=== PATIENT | female | born 1990 | race Hispanic/Latino ===

== ENCOUNTER 2016-11-11 07:08 | Inpatient (IN) | payer MEDICAID ==
[~2016-11-11] VITALS: Ht 162.8 cm; Wt 71.4 kg
[~2016-11-11 07:08] MED LIST: Morphine PF 1 mg/mL 10 mL Inj ONE; Oxytocin 10 Unit/mL Inj ONE; Phenylephrine/NS 100 mCg/mL 10 mL Syringe IVPUSH ONE
[2016-11-11] MEDS ORDERED: Lactated Ringer's 1,000 ML IV SCH (07:15)
[2016-11-11] MEDS ORDERED: Carboprost 250 mCg/mL Inj IM PRN ×2 (07:15→11:25)
[2016-11-11] MEDS ORDERED: Oxytocin 10 Unit/mL Inj IM PRN ×2 (07:15→11:25)
[2016-11-11] MEDS ORDERED: Methylergonovine 0.2 mg/mL Inj IM PRN ×2 (07:15→11:25)
[2016-11-11] MEDS ORDERED: CeFAZolin Inj 2 GM in IV Premix 1 EACH IV SCH ×2 (07:15→09:30)
[2016-11-11] MEDS ORDERED: Hemorrhage Kit, Post Partum XX ONE ×2 (07:15→11:25)
[2016-11-11] MEDS ORDERED: Sodium Citrate-Citric Acid 15 mL Solution PO SCH (07:15)
--- NOTE | 2016-11-11 07:20 | PCM.HPANE ---
Patient Data Surgeon Admitting Provider:Toni Shah MD Attending Provider:Toni Shah MD Primary Care Physician:Other,Physician Other Provider:Sylvester Jones Anesthesia Reason for Visit Primar Section For Previa PRIMAR SECTION FOR PREVIA Ht/WT & BMI Body Mass Index Allergies Coded Allergies: No Known Drug Allergies (Unverified Allergy, Unknown, 10/27/16) Past Anesthesia History Anesthesia History: Denies:: Abnormal Airway, Anesthesia Reactions, Difficult Intubation, Fam Anesthesia Reaction, Fam Malignant Hypertherm, Malignant Hyperthermia Diabetes History Hx Diabetes?: No Medications Hypertension Medication: No Home Meds Incl Beta Joaquin: No History History of ENT Problems?: No HEENT History: Positive for:: Abnormal Airway Denture Type: None Teeth Condition: Within Normal Limits Hx of Heart Problems?: No Cardiovascular History: Denies:: AICD Abdominal Aortic Aneurism Atrial Fibrillation Cardiac Surgery Chest Pain Congestive Heart Failure Coronary Artery Disease Edema Heart Murmur Hypertension Irregular Heartbeat Pacemaker Peripheral Vascular Rheumatic Fever Thrombophlebitis Valvular Heart Disease Hx of Respiratory Problem?: No Respiratory History: Denies:: Asthma Hx Neurologic Problems?: No Hx of GI Problems?: Yes Gastrointestinal History: Positive for:: Gastroesphageal Reflux (during ) Hx of Problems?: No Female Hx: Positive for:: Currently Hx Musculoskeletal Problems?: No Other History/Comment possible scoliosis? Hx Surgeries?: No Smoking Status: Unknown if Ever Smoker Stop/Bang ELIANA Risk Assessment: Low Risk, <3 Yes Risk Assessment Category Category 1A: Patient has history of documented sleep apnea, and HAS NOT received any narcotic, sedative or anesthesia administration during this stay. Category 1B: Patient has history of documented sleep apnea, and HAS received any narcotic , sedative or anesthesia administration during this stay Category 2: Patient has SUSPECTED Obstructive Sleep Apnea, and HAS received any narcotic , sedative or anesthesia administration during this stay. Category 3: Patient has SUSPECTED Obstructive Sleep Apnea and HAS NOT received narcotic, sedative or anesthesia administration during this stay. Category 4: Outpatient in Procedural Areas with known sleep apnea or who screen positive for High Risk via the STOP/BANG questionnaire. Exam Exam General Appearance: Alert, Oriented X3, Cooperative, No Acute Distress HEENT/AIRWAY: MP 1 Lungs: Normal Air Movement Heart: Exam Unremarkable Plan Impression Patient chart reviewed, patient interviewed and anesthestic plan with risks, benefits, and alternatives discussed, and informed consent obtained. NPO per Anesth. Guidelines: Yes ASA Physical Status: ASA1 Normal Healthy Anesthetic Plan: GA (as back-up), SAB Bene/Risks/Altern/Consents: Yes HP Complete Prior to Induction: Yes Baron Joseph MD Nov 11, 2016 07:20
--- NOTE | 2016-11-11 07:31 | PCM.HPOB ---
Subjective Referring Provider: Admitting Physician: Toni Shah MD Primary Care Physician: Other,Physician Attending Physician: Toni Shah MD Chief Complaint Here for scheduled primary section for placenta previa History of Present History of Present Illness 26 y/o at 37w0d by GABY 12/02/16 dated by LMP consistent with 23 weeks ultrasound. Here for scheduled primary section for placenta previa confirmed by [facility] scan and primary delivery is recommended delivery at 37 week. R/B/A of section was discussed with patient in details including and not limited to risk of hysterectomy secondary to uterine atony or placenta accreta. All questions answered, informed consent signed 11/10/16. complicated with: 1) Placenta previa, partial posterior. 2) UTI/Ecoli in . 3) Alcohol exposure in . 3) GBS swab collected 11/10/16. 4) GERD. 5) Chlamydia positive in early , negative DOUGLAS. 6) Late care. Past Medical History Gynecologic History: * Menarche: 12 yrs old * Interval: irregular * Duration: 5 Days * control: never * STI: Chlamydia May 2016 , Negative DOUGLAS July 2016. Medical History: * Anemia in Hct 34% * Low lying placenta, antepartum * Alcohol consumption during * Fatigue * Acid reflux * Chlamydia * Chest pain syndrome Surgical History: None Hx Tobacco Use: No Hx Alcohol Use: No (Earlier in , did know she was ) Hx Substance Use: No Past Family History Family History Asthma (brother) Breast CA (PGM) Family history of twins both sides of the family, cousins. No Family history of congenital or developmental disease. Review of Systems ROS 10 points ROS is negative except for items in HPI. Medications Home medications * Vitamin C 250MG, 1 (one) Tablet Tablet twice daily, #180, 90 days starting , No Refill. Active. * Ferrous Gluconate 325 (36 Fe)MG, 1 (one) Tablet Tablet twice a day, #180, 90 days starting 10/15/2016, No Refill. Active. * Omeprazole 20MG, 1 (one) Tablet DR Tablet DR daily before morning meal, #30, 30 days starting 08/05/2016, Ref. x2. Active. * /Folic Acid, 1 (one) Tablet Tablet daily, #100, starting 08/05/2016, Ref. x3. Active. Allergy Coded Allergies: No Known Drug Allergies (Unverified Allergy, Unknown, 10/27/16) Exam Vital Signs 98/70, 88, 16, 36.4 Exam 140 moderate variability positive accelerations and no decelerations. [place]: contractions Q 1-5 min Constitutional: Well-developed HEENT: Atraumatic Lungs: Clear to Auscultation Heart: Regular Rate/Rhythm, Normal S1, Normal S2 Abdomen: Gravid, No tenderness Extremities: Pulses Palpable x4, No Edema Neurological/Psychiatric: Alert, Oriented X3 Neuro: Grossly Neurologically Intact, Reflexes 2+ Labs/Diagnostics Labs Laboratory Tests 72 Hours Test 11/11/16 07:30 White Blood Count 9.0th/mm3 (3.8-10.1) Red Blood Count 3.84mil/mm3 (3.90-5.20) Hemoglobin 11.3g/dL (12.0-15.6) Hematocrit 34.9% (35.0-46.0) Mean Corpuscular Volume 90.9fL (81-100) Mean Corpuscular Hemoglobin 29.4pg (27.0-35.0) Mean Corpuscular Hemoglobin Concent 32.4% (32.0-37.0) Red Cell Distribution Width 13.5% (12.3-15.4) Platelet Count 233bil/L (150-400) Maternal Blood Type: B (positive ) Group B Strep Results: Sent, awaiting results Rubella: Immune Additional Information HIV nonreactive HepBsAg nonreactive RPR nonreactive Varicella equivocal Chlamydia positive 05/2016 , negative 07/2016 GC negative 1 hr DM screen negative OB Intrapartum Assessment/Plan Assessment 26 y/o at 37w0d by GABY 12/02/16 dated by LMP consistent with 23 weeks ultrasound. Here for scheduled primary section for placenta previa confirmed by [facility] scan and primary delivery is recommended delivery at 37 week. R/B/A of section was discussed with patient in details including and not limited to risk of hysterectomy secondary to uterine atony or placenta accreta. All questions answered, informed consent signed 11/10/16. complicated with: 1) Placenta previa, partial posterior. 2) UTI/Ecoli in . 3) Alcohol exposure in up to 23 weeks every 1-2 weeks 5-6 drinks. 3) GBS swab collected 11/10/16. 4) GERD. 5) Chlamydia positive in early , negative DOUGLAS. 6) Late care. Intrapartum plan Will proceed with primary section as per HPI. Establish 2 large bore IV access Cross match and hold 2 units PRBC Toni Shah MD Nov 11, 2016 07:31
[2016-11-11 07:43] LABS: Mean Corpuscular Hemoglobin 29.4 pg (27.0-35.0); Mean Corpuscular Volume 90.9 fL (81-100)
[2016-11-11] MEDS ORDERED: Dexamethasone 4 mg/mL Inj IVPUSH PRN (10:00)
[2016-11-11] MEDS ORDERED: Morphine PF 1 mg/mL 10 mL Inj EPIDURAL ONE (10:00)
[2016-11-11] MEDS ORDERED: Ondansetron 2 mg/mL 2 mL Inj IVPUSH PRN (10:00)
[2016-11-11] MEDS ORDERED: Lactated Ringer's 1,000 ML IV PRN (10:00)
[2016-11-11] MEDS ORDERED: fentaNYL-PF 50 mCg/mL 2 mL Inj IVPUSH PRN (10:00)
[2016-11-11] MEDS ORDERED: HYDROmorphone 1 mg/mL Inj IVPUSH PRN (10:00)
[2016-11-11] MEDS ORDERED: Atropine 0.4 mg/mL Inj IV PRN (10:00)
[2016-11-11] MEDS ORDERED: MetoCLOpramide 5 mg/mL 2 mL Inj IVPUSH PRN (10:00)
[2016-11-11] MEDS ORDERED: EPHEDrine Sulfate 50 mg/mL Inj IVPUSH PRN (10:00)
[2016-11-11] MEDS ORDERED: Oxytocin 30 Units/500 mL LR 30 UNITS in IV Premix 1 EACH IV PRN (11:25)
[2016-11-11] MEDS ORDERED: hydrOXYzine Pamoate 25 mg Capsule PO PRN (11:25)
[2016-11-11] MEDS ORDERED: diphenhydrAMINE 50 mg Capsule PO PRN (11:25)
[2016-11-11] MEDS ORDERED: Promethazine 50 mg Rectal Suppository RECTAL PRN (11:25)
[2016-11-11] MEDS ORDERED: LANOlin HPA 7 Gm Ointment TOPICAL PRN (11:25)
[2016-11-11] MEDS ORDERED: Sodium Chloride LOK Flush 10 mL Syringe IVFLUSH PRN (11:25)
--- NOTE | 2016-11-11 11:32 | PCM.ANEP1 ---
Post Anesthesia PACU Phase 1 Assessment Anesthetic Administered: SAB Level of Alertness: Awake, talking COHN's with Equal Strength: No (spinal) Pain: No Nausea or Vomiting: No CV Function & Hydration Stable: Yes Airway Device: Oxygen Delivery: Room Air Lungs: Normal Air Movement Dermatome Level: T10 (Umbilicus) PACU Phase 2 Assessment Complications: No Follow up Care: No Patient Instructions Provided: N/A Baron Joseph MD Nov 11, 2016 11:32
[2016-11-11] MEDS ORDERED: MedroxyPROGESTERone 150 mg/mL Inj IM SCH (12:35)
--- NOTE | 2016-11-11 13:50 | OP ---
[address] [address] OPERATIVE REPORT PATIENT: GEOVANY DOTSON : 1990 MR#: [id number] ADMIT: 11/11/2016 JOB ID: [id number] DATE OF SURGERY: 11/11/2016 PREOPERATIVE DIAGNOSIS(ES): 1. Intrauterine at 37 weeks gestation. 2. Placenta previa. POSTOPERATIVE DIAGNOSIS(ES): 1. Intrauterine at 37 weeks gestation. 2. Placenta previa. 3. Status post primary section. PROCEDURE: Primary section via Pfannenstiel skin incision. SURGEON: Toni Shah MD. REINFORCING STEEL PLACER: Meagan Luna MD. Betting Agency Counter Clerk was required for retraction and exposure and safe delivery of the infant and safe completion of the procedure. COMPLICATIONS: None. ANESTHESIA: Spinal. URINE OUTPUT: 200 mL. INTRAVENOUS FLUIDS: 2000 mL. ESTIMATED BLOOD LOSS: 500 mL. OUTCOME: Male delivered in cephalic presentation with two nuchal cords, were released before the delivery of the rest of the body. Clear amniotic fluid. Apgars 8 at one minute and 9 at five minutes. 's weight 2659 g, equivalent to 5 pounds 14 ounces. Normal uterus, tubes and ovaries. DESCRIPTION OF PROCEDURE: The patient presented today for a scheduled primary section for indication of placenta previa, as confirmed by scan by [facility]. Primary section was recommended as mode of delivery and to be performed at 37 weeks. The patient presented today for the above procedure. Informed consent was obtained. All questions were answered. The patient was transferred to the operation room. She was placed under spinal anesthesia. Then, she was placed in a supine position with left lateral tilt. She was prepped abdominally, and pelvic prep was performed. She was draped in usual sterile fashion. Time-out was held and then, adequacy of anesthesia was confirmed. A Pfannenstiel skin incision was made at the level of two fingerbreadths above the symphysis pubis and was carried down to the fascia with sharp and blunt dissection. The initial fascial incision was made with a scalpel and was extended bilaterally with curved Lewis scissors in curvilinear fashion. The inferior aspect of the fascia was elevated on either side of the midline and was dissected off the underlying rectus muscles with blunt and sharp dissection. Then, the superior aspect of the fascia was grasped with Leelee clamps on either side of the midline, and the rectus muscles were dissected off the fascia with blunt and sharp dissection. The rectus muscles were in the midline. The peritoneum was entered bluntly at area clear of the vascularity and the peritoneal incision was extended with sharp dissection with Metzenbaum scissors in area clear of the vascularity or adhesions. A bladder blade was placed and the bladder reflection was identified and the bladder flap was created with Metzenbaum scissors. Then, a self-retained Mobius retractor was placed and bladder blade was placed to further protect the bladder. The uterine incision was made with a scalpel at the lower uterine segment in a transverse fashion. Clear amniotic fluid was noted. Bandage scissors was used, and the uterine incision was extended bilaterally in a curvilinear fashion. Infant's head was brought to the incision and delivered with the assistance of a moderate amount of fundal pressure. Two nuchal cords were released. The rest of the 's body was delivered. Cord was clamped and cut. The was handed off to the awaiting asphalt paving foreman and ICU team. The placenta was delivered with simple expression without difficulty or any resistance. The placental bed was examined. Small vessels noted to be bleeding. Hemostasis was achieved with three [id number] stitches using 2-0 chromic. The uterine cavity was cleared of any remaining clots and debris. The placenta was examined and found to be intact. The uterine incision was closed with 0 Vicryl in a running, interlocking fashion. A second imbricating layer with the same suture material was performed with excellent hemostasis. The posterior cul-de-sac was cleared of any remaining clots and debris. The uterus was placed back into the abdominal cavity. Uterine incision was examined and noted to be hemostatic. Mobius retractor was removed. The uterine incision was re-examined and hemostasis was ensured. The peritoneum was approximated with 2-0 chromic on an SH needle. The rectus muscles were approximated with 2-0 chromic in simple interrupted fashion. The subfascial layer was examined and hemostasis was ensured. Then, the fascia was closed with 0 Vicryl in a running fashion. The subcutaneous layer was irrigated and then approximated with 0 chromic in simple interrupted fashion. The skin was closed with 4-0 Monocryl in subcuticular fashion. Steri-Strips were applied. All instrument, needle and sponge counts were correct x2. The patient and tolerated the procedure well and both were transferred to the room in stable condition. Toni Alanis MD, was present and scrubbed for the entire procedure.
[2016-11-11] MEDS: Acetaminophen IV 1,000 MG in IV Premix 1 EACH IV PRN ×2 (13:51→22:32)
[2016-11-11] MEDS: Lactated Ringer's 1,000 ML IV SCH (18:09)
[2016-11-12] MEDS: Lactated Ringer's 1,000 ML IV SCH ×3 (00:42→19:25)
[2016-11-12 06:30] LABS: Mean Corpuscular Hemoglobin 29.5 pg (27.0-35.0); Mean Corpuscular Volume 92.1 fL (81-100)
[2016-11-12] MEDS: oxyCODONE-Acetamin 5-325 mg Tablet PO PRN ×4 (07:20→19:52)
--- NOTE | 2016-11-12 09:23 | PCM.PNOBPP ---
Subjective Date of Service Nov 12, 2016 Subjective Voided Lochia: Normal Gastrointestinal: Good Appetite, No N/V Postop Activity: Ambulating Independently, Ambulating in [place] Group B Strep Results: Sent, awaiting results Rubella: Immune Blood Type: B (positive ) Labs Laboratory Tests 11/11/16 08:30: Hold Purple Top Tube Received 11/12/16 06:17: White Blood Count 7.8, Red Blood Count 3.56, Hemoglobin 10.5, Hematocrit 32.8, Mean Corpuscular Volume 92.1, Mean Corpuscular Hemoglobin 29.5, Mean Corpuscular Hemoglobin Concent 32.0, Red Cell Distribution Width 13.7, Platelet Count 188 Exam Vital Signs Vital Signs 108/57, HR 62-100, 100%sat on RA, T 36.4, Tmax 37.0 Vital Signs: VS reviewed, stable Exam Abdomen: Fundus firm : Voiding without difficulty Extremities: No edema Heart: Exam Unremarkable General: Alert, Oriented X3, Cooperative OB Post Assessment/Plan Assessment 26 Y POD#1 S/P PCD for placenta previa Appropriate post OP recovery. Continue currant care. Anticipate discharge home tomorrow. Toni Shah MD Nov 12, 2016 09:23
[2016-11-12] MEDS: Ascorbic Acid 500 mg Tablet PO SCH (09:37)
[2016-11-13] MEDS: Lactated Ringer's 1,000 ML IV SCH (03:25)
[2016-11-13] MEDS: Ascorbic Acid 500 mg Tablet PO SCH (08:41)
[2016-11-13] MEDS: oxyCODONE-Acetamin 5-325 mg Tablet PO PRN ×2 (09:40→15:03)
--- NOTE | 2016-11-13 12:13 | PCM.DIOB ---
Obstetrical Disch Instruction Date of Service: Nov 13, 2016 Dates of Hospitalization Date of Hospital Admission Nov 11, 2016 at 07:08 Providers Admitting Physician: Toni Shah MD Primary Care Physician: Blanca Monsalve Attending Physician: Toni Shah MD Discharge Diagnosis Discharge Diagnosis status post primary section Mild Anemia Problems: Diet Discharge Diet: No restrictions Activity Discharge Activity-General: Pelvic Rest for 6 weeks, No lifting >15 pounds for 2 weeks, No lifting >10 pounds for 4-6 weeks Dressing and Incisional Care Hygiene: May shower, May shower after, Wash incision with soap & water, NO bathtub, hot tub or whirlpool Follow Up Plan Follow-up appointment: Weeks (Two, then in 3 weeks for for Nexplanon insertion. ) Call your provider for: Fever or Chills, Shortness of breath, Heavy vaginal bleeding, Heavy bleeding, Epigastric pain, Excessive constipation, Vaginal discomfort, Red painful breasts, Other (Headache, change in vision, Nausea/ vomiting, leg swelling, change in color or pain. ) Toni Shah MD Nov 13, 2016 12:13
[2016-11-13] MEDS ORDERED: IBUP-1827 PO (12:20)
[2016-11-13] MEDS ORDERED: FERR-74 PO (12:20)
[2016-11-13] MEDS ORDERED: OXYC1TAB24 PO (12:20)
[2016-11-13] MEDS ORDERED: DOCU-41 PO (12:20)
--- NOTE | 2016-11-13 12:20 | PCM.DC.OB ---
Obstetrical Discharge Summary Date of Service Nov 13, 2016 Date of hospital admission Nov 11, 2016 at 07:08 Providers Admitting Physician: El Ku MD Primary Care Physician: Blanca Monsalve Attending Physician: El Ku MD Brief History and Physical: 26 y/o at 37w0d by GABY 12/02/16 dated by LMP consistent with 23 weeks ultrasound. Here for scheduled primary section for placenta previa confirmed by [facility] scan and primary delivery is recommended delivery at 37 week. R/B/A of section was discussed with patient in details including and not limited to risk of hysterectomy secondary to uterine atony or placenta accreta. All questions answered, informed consent signed 11/10/16. complicated with: 1) Placenta previa, partial posterior. 2) UTI/Ecoli in . 3) Alcohol exposure in . 3) GBS swab collected 11/10/16. 4) GERD. 5) Chlamydia positive in early , negative DOUGLAS. 6) Late care. Docusate Sodium (Colace) 100 Mg Capsule 100 MG PO BID Prescribed by: EL KU MD Ferrous Sulfate (Feosol) 325 Mg Tablet 325 MG PO DAILY Prescribed by: EL KU MD Ibuprofen (Ibuprofen) 600 Mg Tablet 600 MG PO QID PRN PRN For Pain Prescribed by: EL KU MD oxyCODONE-Acetaminophen 5-325 mg (oxyCODONE-Acetaminophen 5-325 mg) 1 Each Tablet 1-2 TAB PO Q4H PRN PRN For Pain Prescribed by: MD Alyssa GALEANO Omaima A MD Nov 13, 2016 12:20
[2016-11-13 12:39] VITALS: BP 99/56; PULSE 75; RESP 18
--- NOTE | 2016-11-14 12:34 | PATH ---
SURGICAL PATHOLOGY Attending Physician:Toni Shah CASE STATUS: Signed Out PATIENT NAME: KENNEDY DOTSON PID: [id number] : 1990 DATE COLLECTED:11/11/2016 21:19 SPECIMEN: Placenta CLINICAL HISTORY: PLACENTA PREVIA 37 WEEKS GESTATION 1). PLACENTA FINAL DIAGNOSIS: 1.PLACENTA WITH UMBILICAL CORD AND MEMBRANES: 1. PLACENTA: 414 GRAMS, WHICH IS APPROXIMATELY THE 35TH TO THE 40TH PERCENTILE FOR 37 WEEKS GESTATION. MULTIPLE AREAS OF INTERVILLOUS FIBRIN DEPOSITION WITH ASSOCIATED PLACENTAL INFARCTION INVOLVING APPROXIMATELY 20% OF THE PLACENTAL DISC. NEGATIVE FOR SIGNIFICANT INFLAMMATION. 2. UMBILICAL CORD: 30.5 CM IN LENGTH WITH THREE NORMAL BLOOD VESSELS. CORD ATTACHED 3.2 CM FROM THE PLACENTAL EDGE. NEGATIVE FOR SIGNIFICANT INFLAMMATION. 3. MEMBRANES: RUPTURED 2.5 CM FROM THE FREE PLACENTAL EDGE. NEGATIVE FOR SIGNIFICANT INFLAMMATION. ICD10 O43.813 GROSS DESCRIPTION: The specimen is received in formalin, labeled with the patient's name and consists of an intact placenta and includes placental disc (414 g, 22.6 x 16.2 x 2.5 cm), umbilical cord (length-30.5 cm, diameter-1.3 x 1.0 cm) and membranes. The membranes are ruptured 2.5 cm from the free edge of the placenta and are semi-translucent. The umbilical cord is attached 3.2 cm from the edge of the placenta and contains 3 vessels. The surface is smooth and shiny with no evidence of meconium. The maternal surface is dark maroon with normal cotyledon formation. The placental disc is spongy and contains multiple valdivia-white and yellow solid firm fibrous areas (0.7 x 0.5 x 0.3 cm-2.3 x 2.0 x 1.8 cm) involving approximately 20% of the placenta. No nodules, masses, or lesions are identified. Section code: (A) edge of placenta with membranes, umbilical cord; (B-F) placenta, 5 full thickness sections. 11/12/16 JM MICRO DESCRIPTION: See diagnosis. ICD-9 CODES: CPT CODES: 1: 98527 Electronically Signed Out Alcides Arias MD [facility] Pathology [facility] [address] [place] [address] Technical component performed at [facility], [address], [place], [address]
== END 2016-11-13 17:00 | disposition home or self-care (01) | DRG 765 ==
LOC: FBC 07:08 → EDSTATUS 09:15
PROVIDERS: ADMIT Obstetrics & Gynecology; ATTEND Obstetrics & Gynecology
PROC: 10D00Z1 Extraction of Products of Conception, Low, Open Approach (ICD-10-PCS; principal; 2016-11-11 09:15)
DX: O44.23 Partial placenta previa NOS or without hemorrhage, third trimester (principal); O98.82 Other maternal infectious and parasitic diseases complicating childbirth; Z3A.37 37 weeks gestation of pregnancy; Z37.0 Single live birth; O69.81X0 Labor and delivery complicated by cord around neck, without compression, not applicable or unspecified